=== PATIENT | male | born 1985 | race Caucasian/White ===

== ENCOUNTER 2022-05-16 22:42 | Emergency (ER) | payer OTHER ==
[2022-05-16 23:05] VITALS: BP 129/88; PULSE 76; TEMP 98.1; BMI 24.4
[2022-05-17] MEDS ORDERED: diazePAM 5 MG TABLET PO ONE ×2 (04:25→06:33)
[2022-05-17] MEDS ORDERED: diazePAM 5 MG TABLET ONE ×2 (04:47→06:42)
[2022-05-17 05:31] LABS: BASO % 4.6 % (0-2.0); EOS % 4.4 % (0-4.5); HEMATOCRIT 41.1 % (35.4-49); HEMOGLOBIN 14.3 GM/dL (11.7-16.9); LYMPH % 40.4 % (8-40); MCH 33.8 pg (25.7-33.7); MCHC 34.9 g/dl (32.0-35.9); MEAN PLT VOLUME 8.1 fl (7.5-11.1); MONO % 11.4 % (3.8-10.2); NEUT % 39.2 % (42.8-82.8); PLATELET COUNT 371 10^3/uL (134-434); RBC 4.24 M/mm3 (4.00-5.60); RDW 13.5 % (11.9-15.9); WHITE BLOOD COUNT 6.3 K/mm3 (4.0-10.0)
[2022-05-17 05:51] LABS: CALCIUM 9.1 mg/dL (8.5-10.1)
[2022-05-17 05:52] LABS: ALBUMIN 3.4 g/dl (3.4-5.0); BLOOD UREA NITROGEN 8.6 mg/dL (7-18)
[2022-05-17 05:55] LABS: CREATININE 0.7 mg/dL (0.55-1.3)
[2022-05-17 05:57] LABS: BILIRUBIN,TOTAL 0.5 mg/dL (0.2-1)
== END 2022-05-17 10:50 | disposition home or self-care (01) ==
LOC: JER 22:42
DX: F10.930 Alcohol use, unspecified with withdrawal, uncomplicated (principal)
CPT/HCPCS: 36415; 71046-TC-FY; 80053; 84484; 85025; 93005; 93010; 99284-25